=== PATIENT | female | born 1960 | race Hispanic/Latino ===

== ENCOUNTER 2018-09-11 20:02 | Emergency (ER) | payer OTHER ==
--- NOTE | 2018-09-11 20:20 | Emergency Department Report ---
Blank Doc - Documentation Documentation: This is a 58-year-old female that presents with midsternum chest pain with nestor rtness of breathe. Patient stated that chest pain radiates to back. This initial assessment/diagnostic orders/clinical plan/treatment(s) is/are subject to change based on patient's health status, clinical progression and re- assessment by fellow clinical providers in the ED. Further treatment and workup at subsequent clinical providers discretion. Patient/guardians urged not to elope from the ED as their condition may be serious if not clinically assessed and managed. Initial orders include: 1- Patient sent to MAIN ED for further evaluation and treatment 2- EKG 3- CXR 4- Labs
[2018-09-11 21:02] LABS: Basophils % (Auto) 0.9 % (0.0-1.8); Eosinophils # (Auto) 0.2 K/mm3 (0.0-0.4); Eosinophils % (Auto) 6.2 % (0.0-4.3); Hematocrit 34.9 % (30.3-42.9); Hemoglobin 11.7 gm/dl (10.1-14.3); Lymphocytes # (Auto) 1.8 K/mm3 (1.2-5.4); Lymphocytes % (Auto) 45.6 % (13.4-35.0); Mean Corpuscular HGB Conc 33 % (30-34); Mean Corpuscular Volume 89 fl (79-97); Monocytes # (Auto) 0.4 K/mm3 (0.0-0.8); Monocytes % (Auto) 11.4 % (0.0-7.3); Platelet Count 156 K/mm3 (140-440); Red Blood Count 3.92 M/mm3 (3.65-5.03); Red Cell Distribution Width 13.8 % (13.2-15.2)
--- NOTE | 2018-09-11 21:05 | Emergency Department Report ---
ED Chest Pain HPI - General Chief Complaint: Chest Pain Stated Complaint: CHEST AND LUNG PAIN Time Seen by Provider: 09/11/18 20:19 Source: patient Mode of arrival: Ambulatory Limitations: No Limitations - History of Present Illness Initial Comments: Patient is 58-year-old female with no significant positive history. Patient presented to the ER complaining of bilateral lower chest pain, sharp in nature, increased with deep inspiration and movement. Patient stated that pain is been there for 3 days here patient denied any fever. Patient stated that she's been having some cough nonproductive. Patient denied any fever or chills. No nausea or vomiting. MD Complaint: chest pain -: days(s) Pain Location: left chest, right chest Severity scale (0 -10): 6 Quality: sharp Consistency: intermittent - Related Data Previous Rx's Medication Instructions Recorded Last Taken Type HYDROcodone/APAP 5-325 [[place] 1 each PO Q6HR PRN #20 tablet 01/30/14 Unknown Rx 5/325] Ibuprofen [Motrin] 600 mg PO Q8H PRN #60 tablet 01/30/14 Unknown Rx Sulfamethoxazole/Trimethoprim 1 each PO BID #20 tablet 01/30/14 Unknown Rx [Bactrim Ds] Acetaminophen [Tylenol Arthritis] 650 mg PO Q6HR PRN #30 tablet.er 05/04/17 Unknown Rx Ibuprofen [Motrin] 600 mg PO Q8H PRN #30 tablet 05/04/17 Unknown Rx Allergies Allergy/AdvReac Type Severity Reaction Status Date / Time No Known Allergies Allergy Unverified 09/15/13 20:29 Heart Score - HEART Score History: Slightly suspicious EKG: Normal Age: < 45 Risk factors: 1-2 risk factors Troponin: < normal limit HEART Score: 1 - Critical Actions Critical Actions: 0-3 pts:0.9-1.7%risk of adverse cardiac event.Candidate for discharge ED Review of Systems ROS: Stated complaint: CHEST AND LUNG PAIN Other details as noted in HPI Comment: All other systems reviewed and negative Constitutional: denies: chills, fever Respiratory: cough. denies: orthopnea, shortness of breath, SOB with exertion, SOB at rest, wheezing Cardiovascular: chest pain. denies: palpitations, dyspnea on exertion Gastrointestinal: denies: abdominal pain, nausea Musculoskeletal: denies: back pain, joint swelling, arthralgia Neurological: denies: headache, weakness, numbness, paresthesias, confusion ED Past Medical Hx - Past Medical History Previous Medical History?: No - Surgical History Additional Surgical History: bladder prolapse surgery,tonsillectomy, inguinal hernia, hiatal hernia - Social History Smoking Status: Never Smoker Substance Use Type: None - Medications Home Medications: Home Medications Medication Instructions Recorded Confirmed Last Taken Type HYDROcodone/APAP 5-325 [[place] 1 each PO Q6HR PRN #20 tablet 01/30/14 Unknown Rx 5/325] Ibuprofen [Motrin] 600 mg PO Q8H PRN #60 tablet 01/30/14 Unknown Rx Sulfamethoxazole/Trimethoprim 1 each PO BID #20 tablet 01/30/14 Unknown Rx [Bactrim Ds] Acetaminophen [Tylenol Arthritis] 650 mg PO Q6HR PRN #30 tablet.er 05/04/17 Unknown Rx Ibuprofen [Motrin] 600 mg PO Q8H PRN #30 tablet 05/04/17 Unknown Rx ED Physical Exam - General Limitations: No Limitations General appearance: alert, in no apparent distress, anxious - Head Head exam: Present: atraumatic, normocephalic, normal inspection - Eye Eye exam: Present: normal appearance, PERRL - ENT ENT exam: Present: normal exam, normal orophraynx, mucous membranes moist - Neck Neck exam: Present: normal inspection, full ROM. Absent: meningismus, lymphadenopathy, thyromegaly - Respiratory Respiratory exam: Present: normal lung sounds bilaterally. Absent: respiratory distress, wheezes, rales, rhonchi, stridor, chest wall tenderness, accessory muscle use, decreased breath sounds, prolonged expiratory - Cardiovascular Cardiovascular Exam: Present: regular rate, normal rhythm, normal heart sounds - GI/Abdominal GI/Abdominal exam: Present: soft, normal bowel sounds. Absent: distended, tenderness, guarding, rebound, rigid, hypoactive bowel sounds, organomegaly, mass, bruit, pulsatile mass, hernia - Extremities Exam Extremities exam: Present: normal inspection, full ROM, normal capillary refill. Absent: pedal edema, calf tenderness - Back Exam Back exam: Present: normal inspection, full ROM. Absent: tenderness, CVA tenderness (R), CVA tenderness (L), muscle spasm, paraspinal tenderness, vertebral tenderness - Neurological Exam Neurological exam: Present: alert, oriented X3, CN II-XII intact, normal gait, reflexes normal - Skin Skin exam: Present: warm, intact, normal color ED Course Vital Signs 09/11/18 09/11/18 09/11/18 20:20 21:00 21:16 Temperature 98.7 F 98.2 F Pulse Rate 68 75 63 Respiratory 16 15 13 Rate Blood Pressure 131/65 120/73 Blood Pressure 113/70 [Left] O2 Sat by Pulse 98 98 Oximetry 09/11/18 09/11/18 22:00 23:00 Temperature Pulse Rate 64 69 Respiratory 15 16 Rate Blood Pressure 108/66 100/57 Blood Pressure [Left] O2 Sat by Pulse Oximetry ED Medical Decision Making - Lab Data Result diagrams: 09/11/18 20:37 09/11/18 20:37 - EKG Data -: EKG Interpreted by Pa EKG shows normal: sinus rhythm Rate: normal - EKG Data Interpretation: no acute changes - Radiology Data Radiology results: report reviewed Referring Physician: MELBA CAMARGO Patient Name: GLORIA HAN Date of : 1960 Sex: Female Report Date: 2018-09-11 Report Status: Finalized Findings [facility] [address] [place] [address] XRay Report Signed Patient: GLORIA HAN MR#: [id number] : 1960 Acct:[id number] Age/Sex: 58 / F ADM Date: 09/11/18 Loc: ED Attending Dr: Ordering Physician: MELBA CAMARGO NP Date of Service: 09/11/18 Procedure(s): XR chest routine 2V Accession Number(s): [id number] cc: MELBA CAMARGO NP Fluoro Time In Minutes: PROCEDURE: XR CHEST ROUTINE 2V TECHNIQUE: Chest 2 views HISTORY: Chest Pain COMPARISONS: FINDINGS: Cardiac and mediastinal contours are unremarkable. No focal pulmonary infiltrate identified. No pleural fluid collection seen. The pulmonary vasculature is unremarkable IMPRESSION: No acute cardiopulmonary abnormality. This document is electronically signed by Florentin Mchugh MD., September 11 2018 09:11:22 PM ET Transcribed By: SHIRA Dictated By: SERGIO MCHUGH MD Electronically Authenticated By: SERGIO MCHUGH MD Signed Date/Time: 09/11/182112 DD/ 57 TD/TT: 09/11/182057 - Medical Decision Making Patient is 58-year-old female with no significant positive history. Patient presented to the ER complaining of bilateral lower chest pain, sharp in nature, increased with deep inspiration and movement. Patient stated that pain is been there for 3 days here patient denied any fever. Patient stated that she's been having some cough nonproductive. Patient denied any fever or chills. No nausea or vomiting. Patient stated that she is feeling much better after Toradol. EKG did not show any ST elevation or depression. Chest x-ray is negative. D-dimer is negative. Patient had two set of troponin which is negative. Patient chest pain is atypical. I advised patient however to follow-up with her primary care physician for an outpatient testing including stress test. I also advised her to return to the ER if her symptoms are not improved. Critical care attestation.: If time is entered above; I have spent that time in minutes in the direct care of this critically ill patient, excluding procedure time. ED Disposition Clinical Impression: Chest pain, Pleurisy Disposition: DC-01 TO HOME OR SELFCARE Is pt being admited?: No Condition: Stable Instructions: Chest Pain (ED), Pleurisy (ED) Referrals: PRIMARY CARE, [Primary Care Provider] - 3-5 Days
[2018-09-11 21:07] LABS: INR 0.92 (0.87-1.13); Partial Thromboplastin Time 30.3 Sec. (24.2-36.6)
--- NOTE | 2018-09-11 21:13 | XRay Report ---
PROCEDURE: XR CHEST ROUTINE 2V TECHNIQUE: Chest 2 views HISTORY: Chest Pain COMPARISONS: FINDINGS: Cardiac and mediastinal contours are unremarkable. No focal pulmonary infiltrate identified. No pleur al fluid collection seen. The pulmonary vasculature is unremarkable IMPRESSION: No acute cardiopulmonary abnormality. This document is electronically signed by Florentin [place] MD., September 11 2018 09:11:22 PM ET
[2018-09-11 21:28] LABS: Alanine Aminotransferase 10 units/L (7-56); Albumin 4.4 g/dL (3.9-5); BUN/Creatinine Ratio 14; Blood Urea Nitrogen 13 mg/dL (7-17); Calcium 9.3 mg/dL (8.4-10.2); Hemolysis Index 3
[2018-09-11] MEDS ORDERED: TORADOL IV ONE (21:42)
[2018-09-11 23:01] VITALS: BP 100/57
== END 2018-09-12 00:19 | disposition home or self-care (01) ==
LOC: ED 20:02
DX: R07.89 Other chest pain (principal); R09.1 Pleurisy; Z79.899 Other long term (current) drug therapy
CPT/HCPCS: 36415; 71046; 80053; 83880; 84484; 85025; 85379; 85610; 85730; 93005; 93010; 96374; 99284; J1885